=== PATIENT | female | born 1980 | race Two or more races ===

== ENCOUNTER 2023-11-11 17:44 | Emergency (ER) | payer OTHER ==
[~2023-11-11] VITALS: Ht 165.1 cm; Wt 61.2 kg
[~2023-11-11 17:44] MED LIST: CATAPRES0.1 MG; INTESTINEX680 MG PO; LEVSIN/SL0.125 MG PO; PROTONIX40 MG PO; SYNTHROID50 MCG
[2023-11-11] MEDS ORDERED: EZETIMIBE10 MG (18:27)
[2023-11-11] MEDS ORDERED: DEXAMETHASONE SODIUM PHOSPHATE 4 MG/ML VIAL IM ONE (22:15)
[2023-11-11] MEDS ORDERED: KETOROLAC TROMETHAMINE 60 MG VIAL IM ONE ×2 (22:15→22:16)
[2023-11-11] MEDS ORDERED: DEXAMETHASONE SODIUM PHOSPHATE 4 MG/ML VIAL ONE (22:16)
== END 2023-11-11 22:43 | disposition home or self-care (01) ==
LOC: ER 17:46
DX: M54.50 Low back pain, unspecified (principal); E03.9 Hypothyroidism, unspecified; E78.49 Other hyperlipidemia